=== PATIENT | male | born 1970 | race Caucasian/White ===

== ENCOUNTER 2021-05-11 22:12 | Emergency (ER) | payer SELFPAY ==
--- NOTE | 2021-05-11 22:17 | NUR ---
CALLED TO TRIAGE NO ANSWER
--- NOTE | 2021-05-11 22:20 | NUR ---
CALLED TO TRIAGE NO ANSWER
--- NOTE | 2021-05-11 22:22 | NUR ---
CALLED TO TRIAGE NO ANSWER
== END 2021-05-11 22:24 | disposition left against medical advice (07) ==
LOC: ER 22:12
DX: Z53.21 Procedure and treatment not carried out due to patient leaving prior to being seen by health care provider (principal)